=== PATIENT | female | born 1980 | race Caucasian/White ===

== ENCOUNTER 2019-11-07 08:34 | Emergency (ER) | payer BC, SELFPAY ==
[2019-11-07 08:41] VITALS: BP 139/91; PULSE 95; RESP 12; TEMP 36.8; O2SAT 100
--- NOTE | 2019-11-07 08:43 | ED.GENADULT ---
HPI - General Adult General Chief complaint: Allergic Reaction Stated complaint: Pos allergic reaction Time Seen by Provider: 11/07/19 08:44 Source: patient, family (father) and RN notes reviewed Mode of arrival: ambulatory Limitations: no limitations History of Present Illness HPI narrative: 39-year-old female presents with complaints of mosquito bites causing her to have allergic reaction (itching and facial swelling) for the past 6 hours. Claritin lasted 2 AM without relief. Mother says she was outside last night for short period of time and was bitten several times by mosquitoes. She says initially she had red rash to bilateral upper extremities which has resolved. Denies difficulty swallowing and edema. Facial swelling. No burning, bleeding, or drainage. Denies fever, chills, headaches, weakness, fatigue, myalgia, or tongue swelling. Denies chest pain, nausea, vomiting, dizziness, lightheadedness, wheezing. Tolerating po intake well. The patient reports he have not been diagnosed with COVID-19. The patient reports he is not waiting for the results of a COVID-19 lab test. The patient reports he do not have fever, chills, weakness, or fatigue. The patient reports he do not have a new or worsening cough or shortness of breath. Denies chest pain. The patient reports he do not have any rhinorrhea, congestion, loss of taste, sore throat, abdominal pain, and diarrhea. Denies recent traveling. Denies concerns for COVID-19 or exposures been home with limited outdoor exposure except for essential household needs, work, and return home. At this time, patient is not suspected of having COVID-19. Some parts of this dictation were generated by voice recognition software and may contain typographical and/or grammatical inaccuracies. Related Data Home Medications Medication Instructions Recorded Confirmed No Home Medications 11/07/19 11/07/19 Allergies Allergy/AdvReac Type Severity Reaction Status Date / Time Sulfa (Sulfonamide Allergy Unknown Verified 11/29/15 15:02 Antibiotics) sulfanilamide Allergy Unknown Verified 12/19/10 14:46 Review of Systems Review of Systems: Narrative: CONSTITUTIONAL: Denies fever, chills, sweats. EYES: Denies visual changes, redness, discharge. ENT: Denies rhinorrhea, congestion, sore throat, otalgia. CARDIOVASCULAR: Denies chest pain, palpitations, edema. RESPIRATORY: Denies wheezing, cough. GASTROINTESTINAL: Denies abdominal pain, nausea, vomiting, diarrhea. GENITOURINARY: Denies dysuria, hematuria, abnormal discharge. SKIN: Complains of mosquito bites causing her to have allergic reaction (itching and facial swelling). Denies drainage. MUSCULOSKELETAL: Denies acute back pain, joint pain, or myalgia. NEUROLOGIC: Denies numbness or focal weakness. PSYCHIATRIC: Denies anxiety or depression. All systems reviewed & are unremarkable except as noted in HPI and below. [facility] Past Medical History Medical History (Updated 11/07/19 @ 09:14 by ADELE Leos) No significant past medical history Surgical History Surgical History (Updated 11/07/19 @ 09:00 by ADELE Leos) No significant past surgical history Family History Family History (Updated 11/07/19 @ 09:01 by ADELE Leos) Father Hypertension Mother Alive and well Social History Social History (Updated 11/07/19 @ 09:01 by ADELE Leos) Smoking status: Never smoker Tobacco type: cigarettes Second hand tobacco smoke exposure: No Alcohol intake: current Substance use: never Living arrangements: with family Occupation/Education: occupation Gender identity (if verbalized by the patient): Female Sexual Orientation (if Verbalized by the Patient): Straight or Heterosexual Comments At time of signature, agree with nurse past medical, surgical, social, and family history. There is no relevant family history pertinent to the presenting complaint. Exam Narrat
[2019-11-07 09:24] VITALS: BP 120/84
== END 2019-11-07 09:25 | disposition home or self-care (01) ==
PROVIDERS: Emergency Provider Nurse Practitioner Family
DX: L29.9 Pruritus, unspecified (principal); R22.0 Localized swelling, mass and lump, head; T78.40XA Allergy, unspecified, initial encounter; S50.862A Insect bite (nonvenomous) of left forearm, initial encounter; S50.861A Insect bite (nonvenomous) of right forearm, initial encounter; W57.XXXA Bitten or stung by nonvenomous insect and other nonvenomous arthropods, initial encounter
CPT/HCPCS: 96372; 99213; G0463; J1100